=== PATIENT | male | born 1955 | race Caucasian/White ===

== ENCOUNTER → 2017-03-05 | Outpatient (CLI) | payer BC ==
[2016-07-23 11:20] VITALS: BP 138/87
[~2017-03-05] MED LIST: AMLO1TAB76 PO; BACI3.5O4 OP; HYDR-2666 PO; HYDR-971 PO; KETO10TA PO; OMEP20CA5 PO; Pyridium PO; SOLI5TAB PO; TAMS0.4C2 PO; [UNRECOGNIZED DRUG - OTHER] PO; [UNRECOGNIZED DRUG - OTHER] PO
--- NOTE | 2017-03-05 16:02 | CARD ---
APPROVED REPORT INDICATION Atypical chest pain RISK FACTORS Hypertension Obesity Reason : Patient complained of pain PROCEDURE The patient underwent an exercise Stress Test using the Keaton Protocol. Blood pressure, heart rate, a nd EKG were monitored. An Echocardiogram was performed by bench repair technician in four stages in quad fashion. At peak stress four se lected images were obtained and placed side by side with resting images for comparison. STRESS ECHO FINDINGS The resting Echocardiogram showed normal left ventricular contractility with an estimated Ejection Fr action of about 55 %. Normal augmentation of myocardial wall segments using a 16 segment model. Test Type: Exercise Stress Nurse/Tech: Feli Laura R.N. Test Indications: SOB, c/p Cardiac History and Allergies: htn Medications: see ehr Medical History: see ehr Resting ECG: SR Resting Heart Rate: 63 bpm Resting Blood Pressure: 127/79mmHg Pretest Chest Pain: No chest pain Nurse/Tech Notes S1S2, lungs CTA Stress Symptoms knee pain POST EXERCISE Reason for Termination: Reached target heart rate Target HR: Yes Max HR: 153 bpm 96% of Maximum Predicted HR: 160 bpm Exercise duration: 9 min:sec, 3 Stage Exercise capacity: 10.1METs Max Blood Pressure: 184/92mmHg Blood Pressure response to exercise: Normal blood pressure response during stress. Heart Rate response to exercise: wnl Chest Pain: No. Arrhythmia: Yes. occ pvc noted ST Change: No. INTERPRETATION Stress EKG Conclusion: No evidence of stress induced EKG changes. Frequent PVC's noted. STRESS ECG Stress EKG shows no significant changes. Preliminary Notification Critical Value: No <Conclusion> Normal resting wall motion and EF at 55% Normal augmentation with stress and normal regional wall motion. (Images obtained at less than peak s tress, decreasing specificity of the study but otherwise normal.) Frequent PVC's with EKG but no signs of ischemia. Low risk study
== END | disposition home or self-care (01) ==
LOC: ECHO 13:13
PROVIDERS: ATTEND Internal Medicine Cardiovascular Disease
DX: R07.89 Other chest pain (principal)
CPT/HCPCS: 93017; 93350

== ENCOUNTER → 2017-04-26 | Outpatient (CLI) | payer BC ==
[2016-07-23 11:20] VITALS: BP 138/87
[~2017-04-26] MED LIST changes: -AMLO1TAB76 PO; +AMLO1TAB91 PO; +BUPIVACAINE MPF 0.5% 10 ML VIAL for KCIC. IJ ONE; +CONTRAST GIVEN MC PRN; -HYDR-2666 PO; +HYDR-2758 PO; +IOHEXOL 300 MG/ML 50 ML VIAL. INT ART ONE; +LIDOCAINE 1% Multi-Dose 20 ML VIAL. ID ONE; -SOLI5TAB PO; +SOLI5TAB2 PO; +methylPREDNISolone ACETATE 40 MG/ML VIAL. INT ART ONE
--- NOTE | 2017-04-26 16:21 | KCIC ---
Examination: Right hip steroid injection HISTORY: History of right hip pain for one year COMPARISON: None available HISTORY: History of right hip pain Technique: Patient was brought to the fluoroscopic suite. Patient was explained the procedure. Informed consent was obtained after explaining the risks and benefits to the patient. The region was marked. A timeout was performed. The region was prepped and draped in sterile fashion. Local anesthesia was administered with 1 percent lidocaine. A 22-gauge spinal needle was advanced into the right hip joint under fluoroscopic guidance. After negative aspiration, a combination mixture of 4 cc of lidocaine, 4 mL of Omnipaque 300, 4 ml Marcaine and 2 mL of Depo-Medrol was administered. The needle was removed. No immediate complication. Total fluoroscopy time 17 seconds. Total fluoroscopic images 1. IMPRESSION: Successful fluoroscopy-guided right hip steroid injection. Electronically signed by: Jonathan Welch MD (04/26/2017 4:18 PM) [facility]
== END | disposition home or self-care (01) ==
LOC: KCIC 15:16
PROVIDERS: ATTEND Nurse Practitioner Gerontology
DX: M25.551 Pain in right hip (principal)
CPT/HCPCS: 20610; 77002; J1030; Q9967

== ENCOUNTER 2019-10-09 08:58 | Day surgery (SDC) | payer OTHER ==
[~2019-10-09 08:58] MED LIST changes: +AMLO5TAB10 PO; +ASPI-630 PO; -BUPIVACAINE MPF 0.5% 10 ML VIAL for KCIC. IJ ONE; -CONTRAST GIVEN MC PRN; -HYDR-2758 PO; +HYDR-2761 PO; +HYDR-2765 PO; +HYDR-3164 PO; -HYDR-971 PO; +HYDROmorphone 2 MG/ML VIAL IV PRN; -IOHEXOL 300 MG/ML 50 ML VIAL. INT ART ONE; +IV RINGERS,LACTATED 1000ML 1,000 ML IV SCH; -LIDOCAINE 1% Multi-Dose 20 ML VIAL. ID ONE; +LIDOCAINE 1% PF 2 ML VIAL. ID PRN; +METO25TA4 PO; +MORPHINE SULFATE 2 MG/ML VIAL. IV PRN; +OLME20TA17 PO; +ONDANSETRON PF 4 MG/2 ML VIAL. IV PRN; +PROCHLORPERAZINE 10 MG/2 ML VIAL. IV PRN; +RIVA20TA2 PO; +fentaNYL PF VIAL 100 MCG/2 ML VIAL IV PRN; -methylPREDNISolone ACETATE 40 MG/ML VIAL. INT ART ONE
--- NOTE | 2019-10-09 09:38 | EKG ---
[facility] [address] [place] [address] Test Date: 2019-10-09 Test Time: 09:37:30 Pat Name: CHAR LAZARO Department: Room: Gender: M Composite Worker: : 1955 Requested By: APRYL SHOOK Order Number: [id number] Reading MD: Measurements Intervals [place] Rate: 64 P: MT: QRS: -3 QRSD: 132 T: -15 QT: 430 QTc: 448 Interpretive Statements IRREGULAR RHYTHM, NO P-WAVE FOUND LEFTWARD AXIS RIGHT BUNDLE BRANCH BLOCK RVH WITH REPOLARIZATION ABNORMALITY QRS(T) CONTOUR ABNORMALITY CONSIDER ANTEROSEPTAL MYOCARDIAL DAMAGE ABNORMAL ECG RI6.01 No previous ECG available for comparison
[2019-10-09 09:43] LABS: BASO # 0.1 x10^3/uL (0.0-0.2); BASO % 1 % (0-3); EOS # 0.2 x10^3/uL (0.0-0.7); EOS % 3 % (0-3); HEMATOCRIT 42.6 % (39.0-53.0); HEMOGLOBIN 14.6 g/dL (13.0-17.5); LYMPH # 1.7 x10^3/uL (1.0-4.8); LYMPH % 27 % (24-48); MEAN CORPUSCULAR HEMOGLOBIN 32 pg (25-35); MEAN CORPUSCULAR HGB CONC 34 g/dL (31-37); MEAN CORPUSCULAR VOLUME 93 fL (79-100); MONO # 0.6 x10^3/uL (0.0-1.1); MONO % 10 % (0-9); NEUT # 3.7 x10^3/uL (1.8-7.7); NEUT % 60 % (31-73); PLATELET COUNT 161 x10^3/uL (140-400); RED BLOOD COUNT 4.57 x10^6/uL (4.30-5.70); RED CELL DISTRIBUTION WIDTH 12.9 % (11.5-14.5); WHITE BLOOD COUNT 6.2 x10^3/uL (4.0-11.0)
[2019-10-09] MEDS ORDERED: PROPOFOL 40 ML IV ONE (09:50)
[2019-10-09] MEDS ORDERED: LIDOCAINE 2% PF 5 ML VIAL. ONE (09:50)
[2019-10-09 09:52] LABS: CALCIUM 9.4 mg/dL (8.5-10.1); CREATININE 1.2 mg/dL (0.7-1.3); GFR 61.1; MAGNESIUM 1.9 mg/dL (1.8-2.4); POTASSIUM 4.4 mmol/L (3.5-5.1); PROTHROMBIN TIME PATIENT 19.1 SEC (11.7-14.0)
[2019-10-09] MEDS ORDERED: LIDOCAINE 2% TOPICAL JELLY 30GM TUBE. TP ONE (10:00)
[2019-10-09] MEDS ORDERED: LIDOCAINE 2% VISCOUS 15 ML SOLUTION. SWSW ONE (10:00)
[2019-10-09] MEDS ORDERED: BENZOCAINE ONE 20% MUCOSAL SPRAY. MM (10:00)
--- NOTE | 2019-10-09 11:17 | EKG ---
[facility] [address] [place] [address] Test Date: 2019-10-09 Test Time: 11:03:40 Pat Name: CHAR LAZARO Department: Room: Gender: M Sterile Processing Technologist: : 1955 Requested By: APRYL SHOOK Order Number: [id number] Reading MD: Measurements Intervals [place] Rate: 48 P: -22 OK: 210 QRS: -21 QRSD: 122 T: 0 QT: 466 QTc: 420 Interpretive Statements SINUS BRADYCARDIA LEFTWARD AXIS INCOMPLETE RIGHT BUNDLE BRANCH BLOCK OTHERWISE NORMAL ECG RI6.02 No previous ECG available for comparison
[2019-10-09 11:45] VITALS: BP 130/85
[2019-10-09] MEDS ORDERED: FLEC100T PO (12:51)
--- NOTE | 2019-10-09 13:58 | CARD ---
MR#: [id number] Date of Study: 10/09/2019 Ordering Physician: APRYL MONTIEL, Referring Physician: APRYL MONTIEL, Tech: Chayo Hare APPROVED REPORT EXAM: Two-dimensional and M-mode echocardiogram with Doppler and color Doppler. INDICATION Atrial Fibrillation Cardioversion Reason For Test : Rule out Intracardiac Thrombus. PROCEDURE After obtaining informed consent, patient underwent transesophageal echo in the PACU. Type of Sedation : General Anesthesia Sedation was administered by Ashley St. Sedation was achieved with Propofol 150mg intravenously. Transesophageal probe was inserted and advanced into esophagus by Amaury Montiel MD. The JOANNA was performed without complications. Synchronized Cardioversion attempted: Successful Synchronized Cardioversion acheived with 200 Joules after 1 attempt(s). Rhythm following Synchronized Cardioversion: Normal Sinus Rhythm Throughout the procedure, the blood pressure, pulse oximetry, cardiac rhythm, and rate were monitored . The patient tolerated the procedure without adverse effects. Recovery from general anesthesia was une ventful and vital signs were stable. LEFT VENTRICLE The left ventricle is normal size. There is normal left ventricular wall thickness. The left ventricu lar systolic function is mild to moderately decreased. EF 40-45% There is mild global hypokinesis. Di astology not performed. No left ventricle thrombus noted on this study. RIGHT VENTRICLE The right ventricle is mildly dilated. There is normal right ventricular wall thickness. The right ve ntricular systolic function is normal. ATRIA The left atrium is borderline dilated. The right atrium is borderline dilated. The interatrial septum is intact with no evidence for an atrial septal defect or patent foramen ovale as noted on 2-D or Do ppler imaging. There is no thrombus noted in the left atrial appendage. AORTIC VALVE The aortic valve is normal in structure and function. Doppler and Color Flow revealed trace aortic re gurgitation. There is no significant aortic valvular stenosis. MITRAL VALVE The mitral valve is normal in structure and function. There is no evidence of mitral valve prolapse. There is no mitral valve stenosis. Doppler and Color-flow revealed moderate mitral regurgitation. TRICUSPID VALVE The tricuspid valve is normal in structure and function. Doppler and Color Flow revealed no tricuspid valve regurgitation noted. There is no tricuspid valve prolapse or vegetation. There is no tricuspid valve stenosis. PULMONIC VALVE The pulmonary valve is normal in structure and function. Doppler and Color Flow revealed no pulmonic valvular regurgitation. There is no pulmonic valvular stenosis. GREAT VESSELS The aortic root is normal in size. The IVC is normal in size and collapses >50% with inspiration. Critical Notification Critical Value: No <Conclusion> The left ventricular systolic function is mild to moderately decreased. EF 40-45% There is mild global hypokinesis. Doppler and Color-flow revealed moderate mitral regurgitation. Successful CVN to SR. Signed by : Apryl Montiel, Electronically Approved : 10/09/2019 13:58:07
== END 2019-10-09 12:30 | disposition home or self-care (01) ==
LOC: SURG 08:58
PROVIDERS: ATTEND Internal Medicine Cardiovascular Disease
DX: I48.91 Unspecified atrial fibrillation (principal); I34.0 Nonrheumatic mitral (valve) insufficiency; I10 Essential (primary) hypertension; K21.9 Gastro-esophageal reflux disease without esophagitis; M10.9 Gout, unspecified; Z87.442 Personal history of urinary calculi; Z72.89 Other problems related to lifestyle; Z85.46 Personal history of malignant neoplasm of prostate
CPT/HCPCS: 36415; 80048; 83735; 85025; 85610; 92960; 93005; 93312; 93320; 93325; J2001; J2704

== ENCOUNTER → 2021-04-18 | Outpatient (CLI) | payer OTHER ==
[~2021-04-18] MED LIST changes: +AMLO-186 PO; -AMLO5TAB10 PO; +FLEC100T PO; -HYDROmorphone 2 MG/ML VIAL IV PRN; -IV RINGERS,LACTATED 1000ML 1,000 ML IV SCH; -LIDOCAINE 1% PF 2 ML VIAL. ID PRN; -MORPHINE SULFATE 2 MG/ML VIAL. IV PRN; -ONDANSETRON PF 4 MG/2 ML VIAL. IV PRN; -PROCHLORPERAZINE 10 MG/2 ML VIAL. IV PRN; -fentaNYL PF VIAL 100 MCG/2 ML VIAL IV PRN
--- NOTE | 2021-04-18 16:54 | CARD ---
MR#: [id number] Date of Study: 04/18/2021 Ordering Physician: APRYL SHOOK, Referring Physician: APRYL SHOOK, Tech: Paola Marquez [facility] APPROVED REPORT EXAM: Two-dimensional and M-mode echocardiogram with Doppler and color Doppler. Other Information Quality : AverageHR: 58bpm Rhythm : NSR INDICATION Atrial Fibrillation RISK FACTORS Hypertension 2D DIMENSIONS RVDd4.6 (2.9-3.5cm)Left Atrium(2D)4.2 (1.6-4.0cm) IVSd1.0 (0.7-1.1cm)Aortic Root(2D)3.6 (2.0-3.7cm) LVDd4.6 (3.9-5.9cm)LVOT Diameter2.4 (1.8-2.4cm) PWd1.2 (0.7-1.1cm)LVDs2.7 (2.5-4.0cm) FS (%) 41.6 %SV69.8 ml LVEF(%)72.6 (>50%) Aortic Valve AoV Peak Phillip.165.1cm/sAoV VTI40.8cm AO Peak GR.10.9mmHgLVOT Peak Phillip.108.3cm/s AO Mean GR.5mmHgAVA (VMAX)2.85cm2 Mitral Valve MV E Spxscpsv32.5cm/sMV DECEL RASM069ye MV A Rweabect38.6cm/sE/A Ratio1.2 Pulmonary Valve PV Peak Xgbfskmr839.8cm/s Tricuspid Valve TR P. Kacnychm755on/sTR Peak Gr.17mmHg LEFT VENTRICLE The left ventricle is normal size. There is normal left ventricular wall thickness. The left ventricu lar systolic function is normal. Estimated ejection fraction 55-60%. There is normal LV segmental wal l motion. The left ventricular diastolic function and filling is normal for age. RIGHT VENTRICLE The right ventricle is normal size. There is normal right ventricular wall thickness. The right ventr icular systolic function is normal. ATRIA The left atrium is mildly dilated. The right atrium is mildly dilated. The interatrial septum is inta ct with no evidence for an atrial septal defect or patent foramen ovale as noted on 2-D or Doppler im aging. AORTIC VALVE The aortic valve is normal in structure and function. Doppler and Color Flow revealed mild aortic reg urgitation. There is no significant aortic valvular stenosis. MITRAL VALVE The mitral valve is normal in structure and function. There is no evidence of mitral valve prolapse. There is no mitral valve stenosis. Doppler and Color-flow revealed mild mitral regurgitation. TRICUSPID VALVE The tricuspid valve is normal in structure and function. Doppler and Color Flow revealed mild tricusp id regurgitation. Estimated PAP 30 mmHg. There is no tricuspid valve stenosis. PULMONIC VALVE The pulmonary valve is normal in structure and function. Doppler and Color Flow revealed no pulmonic valvular regurgitation. GREAT VESSELS The aortic root is normal in size. The ascending aorta is normal in size. The IVC is normal in size a nd collapses >50% with inspiration. PERICARDIAL EFFUSION There is no evidence of significant pericardial effusion. Critical Notification Critical Value: No <Conclusion> The left ventricular systolic function is normal. Estimated ejection fraction 55-60%. There is normal LV segmental wall motion. Mild aortic regurgitation. Mild mitral regurgitation. Mild tricuspid regurgitation. Estimated PAP 30 mmHg. There is no evidence of significant pericardial effusion. Signed by : Rojelio Khan, Electronically Approved : 04/18/2021 16:54:24
== END ==
LOC: ECHO 11:20
PROVIDERS: ATTEND Internal Medicine Cardiovascular Disease
DX: I08.3 Combined rheumatic disorders of mitral, aortic and tricuspid valves (principal); I48.91 Unspecified atrial fibrillation
CPT/HCPCS: 93306